=== PATIENT | male | born 1960 | race Caucasian/White ===

== ENCOUNTER 2017-12-25 06:07 | Emergency (ER) | END 2017-12-25 07:16 | disposition home or self-care (01) ==

== ENCOUNTER 2018-04-07 06:55 | Emergency (ER) | END 2018-04-07 07:47 | disposition home or self-care (01) ==

== ENCOUNTER → 2018-11-05 | Emergency (ER) | payer BC ==
[~2018-11-05] VITALS: Wt 79.0 kg
[~2018-11-05] MED LIST: ACET325T33 PO; AMOX500C2 PO; BEN25 PO; BENZ-6 PO; GENT5DRO28 RIGHT EYE; HC30CR25 TOP; IBUP-1542 PO; IBUP800T48 PO; IBUPROFEN 600 MG TAB PO ONE; PSEU-79 PO; RANI150T35 PO
[2018-11-05 12:23] VITALS: BP 146/85; PULSE 99; RESP 18
--- NOTE | 2018-11-05 13:37 | ERD ---
ER Documentation Chief Complaint Chief Complaint BODY ACHES, SORE THROAT HPI 58-year-old male presents with body aches and sore throat since yesterday. May have had tactile fever without measured temperature. Denies cough, vomiting, abdominal pain, urinary complaints, neck stiffness, rashes. ROS All systems reviewed and are negative except as per history of present illness. Medications Home Meds Active Scripts Ibuprofen* (Motrin*) 600 Mg Tab, 600 MG PO Q6, #15 TAB Prov:ALLEN DURAN MD 11/05/18 Pseudoephedrine Hcl* (Suphedrin*) 30 Mg Tablet, 30 MG PO Q6 PRN for CONGESTION, #30 TAB Prov:BRITTANY REYNOSO PA-C 04/07/18 Benzonatate* (Tessalon Perle*) 100 Mg Capsule, 100 MG PO Q8H PRN for COUGH, #30 CAP Prov:BRITTANY REYNOSO PA-C 04/07/18 Acetaminophen* (Tylenol*) 325 Mg Tablet, 2 TAB PO Q8 PRN for PAIN AND OR ELEV ATED TEMP, #20 TAB Prov:BRITTANY REYNOSO PA-C 04/07/18 Ibuprofen* (Motrin*) 800 Mg Tab, 800 MG PO Q6, #30 TAB Prov:BRITTANY REYNOSO PA-C 04/07/18 Hydrocortisone* Topical (Hydrocortisone* Topical) 2.5%-28.3 Gm Cream..g., 1 APPLIC TOP BID, #1 TUB Prov:LEVY ALEXANDRA 12/25/17 Diphenhydramine Hcl* (Benadryl*) 25 Mg Cap, 25 MG PO Q6, #30 CAP Prov:LEVY ALEXANDRA 12/25/17 Amoxicillin* (Amoxicillin*) 500 Mg Cap, 500 MG PO TID for 7 Days, CAP Prov:ESTEBAN VALLEJO DO 02/29/16 Ranitidine Hcl* (Zantac*) 150 Mg Tablet, 150 MG PO BID PRN for EPIGASTRIC PAIN, #30 TAB Prov:ESTEBAN VALLEJO DO 02/29/16 Gentamicin Sulfate* (Gentamicin Sulfate* Ophth) 0.3% - 5 Ml Drops, 1 DROP RIGHT EYE Q4 for 7 Days, EA Prov:LEVY ALEXANDRA 11/27/15 Allergies Allergies: Coded Allergies: No Known Allergy (Unverified , 11/27/15) PMhx/Soc History of Surgery: No (Gallbladder, hernia repair) Anesthesia Reaction: No Hx Neurological Disorder: No Hx Respiratory Disorders: No Hx Cardiac Disorders: No Hx Psychiatric Problems: No Hx Miscellaneous Medical Probl: No Hx Alcohol Use: Yes (weekends) Hx Substance Use: No Hx Tobacco Use: No Smoking Status: Never smoker FmHx Family History: No diabetes, No coronary disease, No other Physical Exam Vitals Vital Signs Date Temp Pulse Resp B/P (MAP) Pulse Ox O2 O2 Flow FiO2 Time Delivery Rate 11/05/18 97.9 99 18 146/85 99 12:23 (105) Physical Exam Const: No acute distress Head: Atraumatic Eyes: Normal Conjunctiva ENT: Normal External Ears, Nose and Mouth. TMs normal. Redness in the posterior oropharynx without exudate. Uvula midline and airway patent. Neck: Full range of motion. No meningismus. Resp: Clear to auscultation bilaterally Cardio: Regular rate and rhythm, no murmurs Abd: Soft, non tender, non distended. Normal bowel sounds Skin: No petechiae or rashes Back: No midline or flank tenderness Ext: No cyanosis, or edema Neur: Awake and alert Psych: Normal Mood and Affect Results 24 hrs Current Medications Medications Dose Sig/Tiffany Start Time Status Last (Trade) Ordered Route PRN Stop Time Admin Dose Reason Admin Ibuprofen 600 mg ONCE ONCE 11/05/18 DC 11/05/18 (Motrin) PO 13:00 13:07 11/05/18 13:02 Procedures/MDM Patient presents with signs of sore throat and pharyngitis and body aches since yesterday. Rapid strep is negative. Throat culture pending. Patient was given ibuprofen. Patient has no signs of abscess, airway obstruction, SIRS criteria, additional concerning signs or symptoms. He will be treated with ibuprofen, recommendations for fluids, primary care follow-up and return precautions for worsening or new symptoms. The patient was stable with no new complaints during the ER course. Clinically, there is no current evidence to suggest meningitis, sepsis, acute abdomen, pneumonia, stroke, acute coronary syndrome, pulmonary embolism, aortic dissection or any other emergent condition appearing to require further evaluation or hospitalization. Patient counseled regarding my diag nostic impression and care plan. Prior to discharge all questions answered. Pt agrees with treatment plan and understands strict return precautions. Pt is instructed to follow up with primary care provider within 24-48 hours. Precautionary instructions provided including instructions to return to the ER if not improving or for any worsening or changing symptoms or concerns. Disclaimer: Inadvertent spelling and grammatical errors are likely due to EHR/dictation software use and do not reflect on the overall quality of patient care. Also, please note that the electronic time recorded on this note does not necessarily reflect the actual time of the patient encounter. Departure Diagnosis: Primary Impression: Upper respiratory infection URI type: acute pharyngitis Pharyngitis/tonsillitis etiology: unspecified etiology Qualified Codes: J02.9 - Acute pharyngitis, unspecified Condition: Stable Patient Instructions: Pharyngitis, Viral Referrals: DOCTOR,NOT ON STAFF (PCP) Additional Instructions: examen negativo para infeccion de strep. Probablamente un virus que dura 2-4 gonzalez. cheque otro vez en el proximo hola para mas simptomas- vomito, dolor, kelvin, problemas con respirando, o con ambrose doctor primario. ALLEN DURAN MD Nov 05, 2018 13:37
== END | disposition home or self-care (01) ==
LOC: FTE 12:19
DX: J02.9 Acute pharyngitis, unspecified (principal)
CPT/HCPCS: 87880; 99283; Z7610; 87430